=== PATIENT | female | born 1975 | race Caucasian/White ===

== ENCOUNTER 2021-09-24 13:49 | Emergency (ER) | payer OTHER, SELFPAY ==
[2021-09-24 13:55] VITALS: BP 177/94; PULSE 79; RESP 12; TEMP 36.8; O2SAT 100; BMI 38.0
--- NOTE | 2021-09-24 14:06 | XRR_ITS ---
PROCEDURE INFORMATION: Exam: XR Chest Exam date and time: 09/24/2021 2:54 PM Age: 46 years old Clinical indication: Angina pectoris; Prior surgery; Surgery type: Gb; Patient HX: Increased blood pressure and lt jaw pain x this morning; Additional info: Chest pain TECHNIQUE: Imaging protocol: XR of the chest. Views: 1 view. COMPARISON: No relevant prior studies available. FINDINGS: Lungs: The lung bases are suboptimally assessed due to technique however the upper lungs are clear of focal consolidation. Pleural spaces: Unremarkable. No pleural effusion. No pneumothorax. Heart/Mediastinum: Cardiac silhouette appears normal in size. No obvious vascular congestion. Bones/joints: No acute osseous findings. Other findings: Single view was submitted. XR/XR chest 1V portable [id number] IMPRESSION: No obvious acute consolidation. Suboptimal lung base assessment. Followup including lateral view may be obtained if clinically indicated.
--- NOTE | 2021-09-24 14:06 | ECG_ITS ---
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 Measurements Intervals [place] Rate: 73 P: 35 IA: 188 QRS: 12 QRSD: 87 T: 45 QT: 376 QTc: 415 Interpretive Statements SINUS RHYTHM No previous ECG available for comparison Electronically Signed On 09-24-2021 17:35:07 CDT by Yoanna Cohen M.D. [id number]
--- NOTE | 2021-09-24 16:06 | ECG_ITS ---
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 Measurements Intervals [place] Rate: 67 P: 51 CO: 190 QRS: 51 QRSD: 92 T: 55 QT: 377 QTc: 400 Interpretive Statements SINUS RHYTHM Compared to ECG 09/24/2021 14:04:30 No significant changes Electronically Signed On 09-24-2021 17:40:29 CDT by Yoanna Cohen M.D. [id number]
[2021-09-24 16:12] LABS: Basophils # 0.1 10^3/uL (0.0-0.1); Basophils % 0.8 %; Eosinophils # 0.2 10^3/uL (0.0-0.8); Eosinophils % 3.1 %; Hemoglobin 14.3 g/dL (11.5-15.3); Lymphocytes % 32.5 %; Mean Corpuscular HGB Conc 33.3 g/dL (30.0-36.0); Mean Corpuscular Hemoglobin 29.9 pg (28.0-34.0); Mean Corpuscular Volume 89.8 fl (81-99); Mean Platelet Volume 10.2 fL (7.4-10.4); Monocytes # 0.6 10^3/uL (0.2-0.9); Monocytes % 9.3 %; Neutrophils # 3.31 10^3/uL (1.8-7.7); Nucleated Red Blood Cells % 0 %; Platelet Count 320 10^3/cmm (130-400); Red Blood Count 4.79 10^6/uL (4.1-5.3); Red Cell Distribution Width 13.5 % (12.1-15.1); White Blood Count 6.1 10^3/uL (4.0-10.0)
[2021-09-24 16:39] LABS: Troponin(5th) Baseline 6 ng/L (0-10)
[2021-09-24 16:41] LABS: Blood Urea Nitrogen 7 mg/dL (6-20); Calcium 9.6 mg/dL (8.5-10.5); Carbon Dioxide 27 mmol/L (22-29); Chloride 102 mmol/L (98-107); Glomerular Filtration Rate 90.9 mL/min (90-130); Glucose 93 mg/dL (65-115); Osmolality Calculated 286 mOsm/kg (285-295); Sodium 139 mmol/L (136-145)
--- NOTE | 2021-09-24 18:20 | ED_ITS ---
HPI - Chest Pain General: Chief Complaint: Chest Pain Stated Complaint: chest Pains, High bloodpressure Time Seen by Provider: 09/24/21 18:09 History of Present Illness: Ms. Wilkinson is a 46-year-old lady with history of thyroid cancer status post thyroidectomy who presents to the emergency department due to high blood pressure and jaw/arm discomfort. She reports being at her baseline health the past few days. She did perhaps have 1 episode of jaw discomfort a few days ago. This morning at approximately 9 AM, while at rest, she had onset of jaw discomfort with left arm pain. She reports checking her blood pressure at that time and it was elevated. She denies history of high blood pressure. Overall course of symptoms has mildly improved. Intensity symptoms at worst was moderate. No other specific changes in health, exacerbating, or alleviating factors identified. Onset (ago): hour(s) Timing of current episode: constant Prior episodes: No Onset: during rest Severity: moderate Quality: aching Relieving factors: nothing Exacerbating factors: nothing Review of Systems General: Reports: 10 or more systems reviewed and unremarkable except in HPI and below PFSH ED PFSH: Medical History History of thyroid cancer Surgical History History of thyroidectomy Family History Denies family history of Family history of premature coronary artery disease Social History Smoking and tobacco status: never smoked Physical Exam Const: COMMON NORMALS: alert GENERAL APPEARANCE: cooperative and well developed HENMT: COMMON NORMALS: normocephalic and atraumatic HEAD & SCALP: normocephalic and atraumatic Eye: COMMON NORMALS: conjunctivae normal CONJUNCTIVA: Yes conjunctivae normal SCLERA: sclerae normal Neck/C-Spine: COMMON NORMALS: supple GENERAL: Yes trachea midline Resp: COMMON NORMALS: clear to auscultation bilaterally EFFORT & INSPECTION: Yes able to speak in complete sentences AUSCULTATION: clear to auscultation bilaterally Cardio: COMMON NORMALS: regular rate and regular rhythm RATE: regular rate RHYTHM: regular rhythm GI: COMMON NORMALS: Soft to palpation PALPATION: Yes Soft to palpation and No Tenderness to palpation present (GI) Extremity: GENERAL: Yes normal exam except as noted and No edema Neuro: COMMON NORMALS: moves all extremities SENSORIUM/ORIENTATION: Yes alert and No Orientation impaired Psych: COMMON NORMALS: mental status grossly normal and Normal thought process present THOUGHT PROCESS: Normal thought process present Course ED course: - Patient was seen and evaluated by me at bedside - Patient placed on cardiac monitors, IV access obtained - Initial evaluation notable for exam as above - Labs and xrays personally interpreted by me. EKG notable for sinus rhythm wit h no STEMI. - Labs notable for no significant hematologic or metabolic panel abnormality. Patient has known history of elevated TSH with normal free T4 similar today. Delta troponin negative. - Imaging notable for no lobar consolidation or pneumothorax. - Upon serial reexamination after treatment the patient was similar - Based on patient history, evaluation, and testing as interpreted the most likely cause of the patient's condition is jaw pain and arm pain associated with high blood pressure which resolved spontaneously. Concerning for atypical chest pain though patient has a heart score of 3 and therefore can satisfactorily be managed outpatient. - The results of ED evaluation were discussed with the patient including restratification methodology and estimated risk of major adverse cardiac events. I offered follow-up with cardiology through our nurse outreach case manager versus follow-up with PCP, patient comfortable with PCP follow-up for further scheduling of possible cardiac testing and management. Given that patient did have hypertensive readings I will prescribe antihypertensive. 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 I discussed risks and precautions regarding new medications. I discussed followup plan and return precautions. The patient verbalized understanding and felt safe for discharge. - Patient discharged in satisfactory condition. Note: Click bubbles or prepopulated ko in note writing are used for assistance with data collection and billing and are inherently more limited than narrative and other text portions of this note. Please use narrative for additional clinical history and defer to narrative/free test for any case of contradictory information. If information appears in only free text or click bubble it should be considered present or absent as reported. Please contact note speech writer for clarifications of clinical information or contradictory information. MDM is a brief summary, contradictory or erroneous seeming information should be clarified and full note should be reviewed. Vital Signs: Vital signs: Vital Signs Temperature 98.2 F 09/24/21 13:55 Pulse Rate 76 09/24/21 20:47 Respiratory Rate 18 09/24/21 20:47 Blood Pressure 124/87 09/24/21 20:47 Pulse Oximetry 98 09/24/21 20:47 MDM - Chest Pain Medical Decision Making 46-year-old lady without significant cardiac risk factors other than obesity presenting due to jaw and arm pain associated with high blood pressure. No history of hypertension. Patient did have high blood pressure readings while in the emergency department though improved spontaneously. Delta troponin negative. Discussed outpatient options given low risk heart score. Patient elects to follow-up with a primary care provider for further referral for testing. I will prescribe hydrochlorothiazide and patient is aware of need for labs in the outpatient setting. Satisfactory for outpatient management. Medical Records I reviewed the patient's medical records. Lab Data I reviewed the patient's lab results. : 09/24/21 15:52 09/24/21 15:52 Radiology Impressions Chest X-Ray 09/24/21 14:06 IMPRESSION: No obvious acute consolidation. Suboptimal lung base assessment. Followup including lateral view may be obtained if clinically indicated. Laboratory Results WBC 6.1 10^3/uL (4.0-10.0) 09/24/21 15:52 RBC 4.79 10^6/uL (4.1-5.3) 09/24/21 15:52 Hgb 14.3 g/dL (11.5-15.3) 09/24/21 15:52 Hct 43.0 % (37.0-47.0) 09/24/21 15:52 MCV 89.8 fl (81-99) 09/24/21 15:52 MCH 29.9 pg (28.0-34.0) 09/24/21 15:52 MCHC 33.3 g/dL (30.0-36.0) 09/24/21 15:52 RDW 13.5 % (12.1-15.1) 09/24/21 15:52 Plt Count 320 10^3/cmm (130-400) 09/24/21 15:52 MPV 10.2 fL (7.4-10.4) 09/24/21 15:52 Neut % (Auto) 54.0 % 09/24/21 15:52 Lymph % (Auto) 32.5 % 09/24/21 15:52 [place] % (Auto) 9.3 % 09/24/21 15:52 Eos % (Auto) 3.1 % 09/24/21 15:52 Baso % (Auto) 0.8 % 09/24/21 15:52 Neut # (Auto) 3.31 10^3/uL (1.8-7.7) 09/24/21 15:52 Lymph # (Auto) 2.0 10^3/uL (0.8-4.8) 09/24/21 15:52 [place] # (Auto) 0.6 10^3/uL (0.2-0.9) 09/24/21 15:52 Eos # (Auto) 0.2 10^3/uL (0.0-0.8) 09/24/21 15:52 Baso # (Auto) 0.1 10^3/uL (0.0-0.1) 09/24/21 15:52 Nucleated RBC % (auto) 0 % 09/24/21 15:52 Nucleated RBCs # 0.0 /100WBC 09/24/21 15:52 Sodium 139 mmol/L (136-145) 09/24/21 15:52 Potassium 4.0 mmol/L (3.5-5.1) 09/24/21 15:52 Chloride 102 mmol/L (98-107) 09/24/21 15:52 Carbon Dioxide 27 mmol/L (22-29) 09/24/21 15:52 Anion Gap 14.0 (5-19) 09/24/21 15:52 BUN 7 mg/dL (6-20) 09/24/21 15:52 Creatinine 0.7 mg/dL (0.5-0.9) 09/24/21 15:52 GFR Calculation 90.9 mL/min (90-130) 09/24/21 15:52 Glucose 93 mg/dL (65-115) 09/24/21 15:52 Calculated Osmolality 286 mOsm/kg (285-295) 09/24/21 15:52 Calcium 9.6 mg/dL (8.5-10.5) 09/24/21 15:52 Troponin T Baseline 6 ng/L (0-10) 09/24/21 15:52 Troponin T 120 Minute 6.00 ng/L (0-10) 09/24/21 19:28 Delta Troponin T 0 ABS# (0-10) 09/24/21 19:28 TSH 12.34 uIU/mL (0.27-4.20) H 09/24/21 15:52 Free T4 1.39 ng/dL (0.82-1.77) 09/24/21 15:52 Discharge Plan Discharge Patient Disposition: Home Clinical Impression: Jaw pain, Paresthesia Condition: Stable Prescriptions: New hydrochlorothiazide 12.5 mg capsule 12.5 mg PO DAILY Qty: 30 0RF No Action liothyronine 5 mcg tablet 5 mcg PO DAILY 0RF Singulair 10 mg tablet 10 mg PO DAILY 0RF levothyroxine 200 mcg tablet 200 mcg PO DAILY 0RF Discharge Orders: Discharge ED (Routine); Ordered 09/24/21 Ordered By: Jacob Kelley Referrals: Simi Mccormack APN [Primary Care Provider] - Discharge Diet: Usual diet Discharge Activity: Resume usual activity Patient Instructions: Chest Pain (ED), Hypertension (ED) Activity Restrictions/Additional Instructions: Thank you for visiting the emergency department. You were seen and evaluated for high blood pressure associated with possibly atypical chest pain symptoms. The exact cause of your symptoms is unclear. Your hematologic and metabolic panel look normal. Your TSH was elevated however your free T4 is normal. Your troponin was normal. You will be started on hydrochlorothiazide. Please have repeat blood work in 1 week to ensure that electrolyte and kidney function are normal. Please follow-up with your primary care provider regarding possible additional cardiac testing. Please return to the emergency department for worsening symptoms or anything else that you are concerned about and feel needs emergency department evaluation. Coding Level of Care Code ED Maintainer [employer] for [facility] Fwd Exam Comprehensive
[2021-09-24 19:00] VITALS: BP 160/96; PULSE 63; RESP 15; O2SAT 100
[2021-09-24 19:30] VITALS: PULSE 69; RESP 16; O2SAT 95
[2021-09-24 20:00] VITALS: BP 142/99; PULSE 69; RESP 19; O2SAT 100
[2021-09-24 20:12] LABS: Troponin 5 2HR Delta 0 ABS# (0-10)
[2021-09-24 20:30] VITALS: BP 139/97; PULSE 65; RESP 14; O2SAT 97
[2021-09-24 20:38] LABS: Free T4 Free Thyroxine 1.39 ng/dL (0.82-1.77); Thyroid Stimulating Hormone 12.34 uIU/mL (0.27-4.20)
[2021-09-24 20:47] VITALS: BP 124/87; PULSE 76; RESP 18; O2SAT 98
== END 2021-09-24 20:47 | disposition home or self-care (01) ==
PROVIDERS: Emergency Medicine; Emergency Provider Emergency Medicine; PCP Nurse Practitioner Family
DX: R68.84 Jaw pain (principal); R20.2 Paresthesia of skin; R03.0 Elevated blood-pressure reading, without diagnosis of hypertension; E89.0 Postprocedural hypothyroidism; E66.9 Obesity, unspecified; Z68.38 Body mass index [BMI] 38.0-38.9, adult; Z85.850 Personal history of malignant neoplasm of thyroid
CPT/HCPCS: 36415; 71045; 80048; 84439; 84443; 84484; 85025; 93005; 99284